=== PATIENT | female | born 1950 | race Caucasian/White ===

== ENCOUNTER 2016-11-26 15:21 | Inpatient (IN) | payer MEDICARE, OTHER ==
[2016-11-26] MEDS ORDERED: CYMBALTA30 M1 PO (15:25)
[2016-11-26] MEDS ORDERED: OMEGA 3 1,0001 EAC1 PO (15:38)
[2016-11-26] MEDS ORDERED: CHOLESTOFF PO (15:39)
[2016-11-26] MEDS ORDERED: VITAMIN C500 M3 PO (15:39)
[2016-11-26 16:20] LABS: URINE BILIRUBIN NEGATIVE (NEG); URINE BLOOD SMALL (NEG); URINE GLUCOSE (UA) MODERATE (NEG); URINE KETONE NEGATIVE (NEG); URINE LEUKOCYTE ESTERASE POSITIVE (NEG); URINE NITRITE NEGATIVE (NEG); URINE PROTEIN NEGATIVE (NEG)
[2016-11-26 16:24] LABS: URINE APPEARANCE CLEAR; URINE COLOR YELLOW
[2016-11-26 16:27] LABS: URINE RBC 0-1 /[HPF] (0-5)
[2016-11-26 16:41] LABS: BASO % 0.2 % (0-2); EOS % 0.2 % (0-7); HCT-HEMATOCRIT 36.6 % (34.0-49.0); HGB-HEMOGLOBIN 13.1 gm/dl (12.0-15.5); IMMATURE GRANULOCYTES ABSOLUTE 0.01 tho/cmm (0-0.03); IMMATURE GRANULOCYTES PERCENT 0.2 % (0-0.3); LYMPH % 11.8 % (20-45); LYMPH ABSOLUTE COUNT 0.7 tho/cmm (0.8-4.5); MCH (MEAN CORPUSCULAR HGB) 33.1 pg (28.0-32.0); MCHC MEAN CORPUSCULAR HGB CONC 35.8 % (32.0-36.0); MCV (MEAN CELL VOLUME) 92.4 fl (82.0-96.0); MEAN PLATELET VOLUME 9.9 cmc (9.4-12.4); MONO % 7.1 % (0-12); MONOCYTE ABSOLUTE COUNT 0.4 tho/cmm (0.0-1.2); NEUTROPHIL ABSOLUTE COUNT 4.4 tho/cmm (1.6-8.0); NEUTROPHIL-AUTOMATED 4.4 tho/cmm (1.6-8.0); NEUTROPHILS % 80.5 % (40-80); PLATELET COUNT 154 tho/cmm (150-450); RED BLOOD COUNT 3.96 mil/cmm (4.00-5.20); RED CELL DISTRIBUTION WIDTH 12.1 % (12.4-16.4); WHITE BLOOD COUNT 5.5 tho/cmm (4.0-10.0)
[2016-11-26 17:01] LABS: ALB/GLOB RATIO 1.3 (0.8-2.0); ALBUMIN 3.8 g/dl (3.5-5.0); ALKALINE PHOSPHATASE 70 U/L (33-138); ALT/SGPT 31 U/L (12-78); ANION GAP 14 mmol/L (0-20); AST/SGOT 13 U/L (10-40); BILIRUBIN,TOTAL 0.7 mg/dl (0-1.5); BLOOD UREA NITROGEN 13 mg/dl (6-24); CALCIUM 8.5 mg/dl (8.5-10.5); CARBON DIOXIDE-VENOUS 25 mmol/L (22-32); CHLORIDE 101 mmol/l (96-110); CREATININE 0.59 mg/dl (0.50-1.10); GLUCOSE 139 mg/dL (70-110); POTASSIUM 3.7 mmol/L (3.7-5.1); SODIUM 136 mmol/L (135-145); eGFR VALUE FOR BLACK >90 mL/Min
[2016-11-26 17:05] LABS: TSH-THYROID STIMULATING HORM. 0.54 uIU/ml (0.40-3.80)
[2016-11-29 18:20] LABS: BASO % 0.1 % (0-2); HCT-HEMATOCRIT 33.8 % (34.0-49.0); HGB-HEMOGLOBIN 12.3 gm/dl (12.0-15.5); IMMATURE GRANULOCYTES ABSOLUTE 0.02 tho/cmm (0-0.03); IMMATURE GRANULOCYTES PERCENT 0.2 % (0-0.3); LYMPH % 4.3 % (20-45); LYMPH ABSOLUTE COUNT 0.4 tho/cmm (0.8-4.5); MCH (MEAN CORPUSCULAR HGB) 33.4 pg (28.0-32.0); MCHC MEAN CORPUSCULAR HGB CONC 36.4 % (32.0-36.0); MCV (MEAN CELL VOLUME) 91.8 fl (82.0-96.0); MEAN PLATELET VOLUME 9.5 cmc (9.4-12.4); MONO % 6.5 % (0-12); MONOCYTE ABSOLUTE COUNT 0.6 tho/cmm (0.0-1.2); NEUTROPHIL ABSOLUTE COUNT 7.7 tho/cmm (1.6-8.0); NEUTROPHIL-AUTOMATED 7.7 tho/cmm (1.6-8.0); NEUTROPHILS % 88.9 % (40-80); PLATELET COUNT 151 tho/cmm (150-450); RED BLOOD COUNT 3.68 mil/cmm (4.00-5.20); RED CELL DISTRIBUTION WIDTH 12.3 % (12.4-16.4); WHITE BLOOD COUNT 8.6 tho/cmm (4.0-10.0)
[2016-11-29 18:39] LABS: ANION GAP 14 mmol/L (0-20); BLOOD UREA NITROGEN 6 mg/dl (6-24); CALCIUM 8.3 mg/dl (8.5-10.5); CARBON DIOXIDE-VENOUS 25 mmol/L (22-32); CHLORIDE 103 mmol/l (96-110); CREATININE 0.61 mg/dl (0.50-1.10); GLUCOSE 176 mg/dL (70-110); POTASSIUM 3.4 mmol/L (3.7-5.1); SODIUM 139 mmol/L (135-145); eGFR VALUE FOR BLACK >90 mL/Min
[2016-12-02] MEDS ORDERED: DUONEB INH (14:52)
[2016-12-02] MEDS ORDERED: NORCO 5-325 TA1 EACH PO (14:53)
[2016-12-02] MEDS ORDERED: TYLENOL325 M2 PO (14:54)
[2016-12-02] MEDS ORDERED: DEXAMETHASONE4 M1 PO (14:57)
[2016-12-02] MEDS ORDERED: MILK OF MAGNESIA PO (14:58)
[2016-12-02] MEDS ORDERED: MIRALAX17 G2 PO (14:59)
== END 2016-12-02 16:30 | DRG 25 ==
LOC: EDMED 15:21 → EMR2 19:45 → 5WF 21:04 → PACU 11-29 12:24 → CCU 11-29 12:46 → 5EB 11-30 16:00
PROVIDERS: Emergency Medicine; Internal Medicine Critical Care Medicine; ADMIT Family Medicine
PROC: 5A09357 Assistance with Respiratory Ventilation, Less than 24 Consecutive Hours, Continuous Positive Airway Pressure (ICD-10-PCS; 2016-11-26)
PROC: 00BC0ZZ Excision of Cerebellum, Open Approach (ICD-10-PCS; principal; 2016-11-29)
DX: D32.0 Benign neoplasm of cerebral meninges (principal); G93.6 Cerebral edema; G91.1 Obstructive hydrocephalus; R27.0 Ataxia, unspecified; Z91.81 History of falling; M79.7 Fibromyalgia; M48.00 Spinal stenosis, site unspecified; E87.6 Hypokalemia; G47.30 Sleep apnea, unspecified
CPT/HCPCS: A9577; C1713; C1751; G8978-GP-CJ; G8979-GP-CI; G8979-GP-CJ; G8980-GP-CJ; J0690; J1170; J2250; J2310; J2405; J7030

== ENCOUNTER 2016-12-30 09:18 | Inpatient (IN) | payer MEDICARE, OTHER ==
[~2016-12-30 09:18] MED LIST: CHOLESTOFF PO; CYMBALTA30 M1 PO; DEXAMETHASONE4 M1 PO; DUONEB INH; MILK OF MAGNESIA PO; MIRALAX17 G2 PO; NORCO 5-325 TA1 EACH PO; OMEGA 3 1,0001 EAC1 PO; TYLENOL325 M2 PO; VITAMIN C500 M3 PO
[2016-12-30] MEDS ORDERED: TYLENOL EXTRA500 M1 PO (09:40)
[2016-12-30] MEDS ORDERED: CERTAVITE SR-A1 EACH PO (09:40)
[2016-12-30] MEDS ORDERED: CALCIUM 600 +1 EA12 PO (09:40)
[2016-12-30] MEDS ORDERED: CYMBALTA30 M1 PO (09:41)
[2016-12-30] MEDS ORDERED: FISH OIL 11000 MG/CA PO (09:41)
[2016-12-30] MEDS ORDERED: CHOLEST OFF450 M1 PO (09:41)
[2016-12-30] MEDS ORDERED: FLOMAX0.4 M1 PO (09:42)
[2016-12-30] MEDS ORDERED: GLUCOSAMINE CH1 EA13 PO (09:42)
[2016-12-30] MEDS ORDERED: VITAMIN C500 M3 PO (09:42)
[2016-12-30] MEDS ORDERED: MAGNESIUM CITR100 M1 PO (09:42)
[2016-12-30] MEDS ORDERED: FLONASE ALLERG9.9 ML (09:43)
[2016-12-30] MEDS ORDERED: VITAMIN D32000 UNI3 PO (09:43)
[2016-12-30] MEDS ORDERED: ZOFRAN4 M2 PO (09:44)
[2016-12-30] MEDS ORDERED: CLARITIN10 M6 PO (09:44)
[2016-12-30 10:27] LABS: BASO % 0.5 % (0-2); EOS % 0.5 % (0-7); HGB-HEMOGLOBIN 14.5 gm/dl (12.0-15.5); IMMATURE GRANULOCYTES ABSOLUTE 0.02 tho/cmm (0-0.03); IMMATURE GRANULOCYTES PERCENT 0.5 % (0-0.3); LYMPH % 17.6 % (20-45); LYMPH ABSOLUTE COUNT 0.7 tho/cmm (0.8-4.5); MCH (MEAN CORPUSCULAR HGB) 33.4 pg (28.0-32.0); MCHC MEAN CORPUSCULAR HGB CONC 36.3 % (32.0-36.0); MCV (MEAN CELL VOLUME) 92.2 fl (82.0-96.0); MEAN PLATELET VOLUME 9.4 cmc (9.4-12.4); MONO % 9.2 % (0-12); MONOCYTE ABSOLUTE COUNT 0.4 tho/cmm (0.0-1.2); NEUTROPHILS % 71.7 % (40-80); PLATELET COUNT 227 tho/cmm (150-450); RED BLOOD COUNT 4.34 mil/cmm (4.00-5.20); RED CELL DISTRIBUTION WIDTH 12.7 % (12.4-16.4); WHITE BLOOD COUNT 4.2 tho/cmm (4.0-10.0)
[2016-12-30 10:35] LABS: ALBUMIN 3.9 g/dl (3.5-5.0); ALKALINE PHOSPHATASE 106 U/L (33-138); ALT/SGPT 71 U/L (12-78); AST/SGOT 28 U/L (10-40); BILIRUBIN,TOTAL 1.1 mg/dl (0-1.5); BLOOD UREA NITROGEN 9 mg/dl (6-24); CALCIUM 9.3 mg/dl (8.5-10.5); CARBON DIOXIDE-VENOUS 24 mmol/L (22-32); CHLORIDE 104 mmol/l (96-110); CREATININE 0.77 mg/dl (0.50-1.10); GLUCOSE 145 mg/dL (70-110); LIPASE 433 U/L (73-393); SODIUM 140 mmol/L (135-145); eGFR VALUE FOR BLACK >90 mL/Min
[2016-12-30 10:44] LABS: ANION GAP 15 mmol/L (0-20); C-REACTIVE PROTEIN <0.3 mg/dl (0-0.9)
[2016-12-31 04:52] LABS: BASO % 0.4 % (0-2); EOS % 1.3 % (0-7); EOSINOPHIL ABSOLUTE COUNT 0.1 tho/cmm (0.0-0.7); HCT-HEMATOCRIT 36.4 % (34.0-49.0); HGB-HEMOGLOBIN 12.7 gm/dl (12.0-15.5); IMMATURE GRANULOCYTES ABSOLUTE 0.01 tho/cmm (0-0.03); IMMATURE GRANULOCYTES PERCENT 0.2 % (0-0.3); LYMPH % 28.6 % (20-45); LYMPH ABSOLUTE COUNT 1.3 tho/cmm (0.8-4.5); MCH (MEAN CORPUSCULAR HGB) 32.7 pg (28.0-32.0); MCHC MEAN CORPUSCULAR HGB CONC 34.9 % (32.0-36.0); MCV (MEAN CELL VOLUME) 93.8 fl (82.0-96.0); MEAN PLATELET VOLUME 9.2 cmc (9.4-12.4); MONO % 10.7 % (0-12); MONOCYTE ABSOLUTE COUNT 0.5 tho/cmm (0.0-1.2); NEUTROPHIL ABSOLUTE COUNT 2.7 tho/cmm (1.6-8.0); NEUTROPHIL-AUTOMATED 2.7 tho/cmm (1.6-8.0); NEUTROPHILS % 58.8 % (40-80); PLATELET COUNT 192 tho/cmm (150-450); RED BLOOD COUNT 3.88 mil/cmm (4.00-5.20); WHITE BLOOD COUNT 4.6 tho/cmm (4.0-10.0)
[2016-12-31 05:03] LABS: AMYLASE 60 U/L (20-90); BLOOD UREA NITROGEN 8 mg/dl (6-24); CALCIUM 8.5 mg/dl (8.5-10.5); CARBON DIOXIDE-VENOUS 25 mmol/L (22-32); CHLORIDE 109 mmol/l (96-110); CREATININE 0.52 mg/dl (0.50-1.10); GLUCOSE 103 mg/dL (70-110); MAGNESIUM 2.1 mg/dl (1.8-2.6); SODIUM 144 mmol/L (135-145); eGFR VALUE FOR BLACK >90 mL/Min
[2016-12-31 05:19] LABS: ANION GAP 13 mmol/L (0-20); LIPASE 172 U/L (73-393)
[2016-12-31 05:21] LABS: POTASSIUM 2.9 mmol/L (3.7-5.1)
[2017-01-01] MEDS ORDERED: TYLENOL325 M2 PO (11:58)
[2017-01-01] MEDS ORDERED: PROTONIX20 M2 PO (12:00)
== END 2017-01-01 12:50 | DRG 439 ==
LOC: EDMED 09:18 → EMR2 12:58 → 5WE 13:45
PROVIDERS: Emergency Medicine; ADMIT Internal Medicine
DX: K85.90 Acute pancreatitis without necrosis or infection, unspecified (principal); G91.1 Obstructive hydrocephalus; R42 Dizziness and giddiness; E87.6 Hypokalemia; R53.1 Weakness; M79.7 Fibromyalgia; M48.00 Spinal stenosis, site unspecified; Z88.5 Allergy status to narcotic agent; Z79.899 Other long term (current) drug therapy
CPT/HCPCS: C9113; J2405; J3480; J7030

== ENCOUNTER 2017-01-28 06:57 | Emergency (ER) | payer MEDICARE, OTHER ==
[~2017-01-28 06:57] MED LIST changes: +CALCIUM 600 +1 EA12 PO; +CERTAVITE SR-A1 EACH PO; +CHOLEST OFF450 M1 PO; +CLARITIN10 M6 PO; +FISH OIL 11000 MG/CA PO; +FLOMAX0.4 M1 PO; +FLONASE ALLERG9.9 ML; +GLUCOSAMINE CH1 EA13 PO; +MAGNESIUM CITR100 M1 PO; +PROTONIX20 M2 PO; +TYLENOL EXTRA500 M1 PO; +VITAMIN D32000 UNI3 PO; +ZOFRAN4 M2 PO
[2017-01-28 08:05] LABS: BASO % 1.4 % (0-2); BASO ABSOLUTE COUNT 0.1 tho/cmm (0.0-0.2); EOS % 2.2 % (0-7); EOSINOPHIL ABSOLUTE COUNT 0.1 tho/cmm (0.0-0.7); HCT-HEMATOCRIT 39.5 % (34.0-49.0); HGB-HEMOGLOBIN 14.2 gm/dl (12.0-15.5); IMMATURE GRANULOCYTES ABSOLUTE 0.01 tho/cmm (0-0.03); IMMATURE GRANULOCYTES PERCENT 0.3 % (0-0.3); LYMPH % 28.4 % (20-45); LYMPH ABSOLUTE COUNT 1.1 tho/cmm (0.8-4.5); MCH (MEAN CORPUSCULAR HGB) 33.1 pg (28.0-32.0); MCHC MEAN CORPUSCULAR HGB CONC 35.9 % (32.0-36.0); MCV (MEAN CELL VOLUME) 92.1 fl (82.0-96.0); MEAN PLATELET VOLUME 9.6 cmc (9.4-12.4); MONO % 6.8 % (0-12); MONOCYTE ABSOLUTE COUNT 0.3 tho/cmm (0.0-1.2); NEUTROPHIL ABSOLUTE COUNT 2.3 tho/cmm (1.6-8.0); NEUTROPHIL-AUTOMATED 2.3 tho/cmm (1.6-8.0); NEUTROPHILS % 60.9 % (40-80); PLATELET COUNT 194 tho/cmm (150-450); RED BLOOD COUNT 4.29 mil/cmm (4.00-5.20); RED CELL DISTRIBUTION WIDTH 12.8 % (12.4-16.4); WHITE BLOOD COUNT 3.7 tho/cmm (4.0-10.0)
[2017-01-28 08:24] LABS: ALB/GLOB RATIO 1.2 (0.8-2.0); ALBUMIN 4.2 g/dl (3.5-5.0); ALKALINE PHOSPHATASE 105 U/L (33-138); ALT/SGPT 43 U/L (12-78); ANION GAP 13 mmol/L (0-20); AST/SGOT 19 U/L (10-40); BILIRUBIN,TOTAL 1.1 mg/dl (0-1.5); BLOOD UREA NITROGEN 7 mg/dl (6-24); CALCIUM 9.7 mg/dl (8.5-10.5); CARBON DIOXIDE-VENOUS 27 mmol/L (22-32); CHLORIDE 105 mmol/l (96-110); CREATININE 0.85 mg/dl (0.50-1.10); GLUCOSE 129 mg/dL (70-110); LIPASE 322 U/L (73-393); POTASSIUM 4.2 mmol/L (3.7-5.1); SODIUM 141 mmol/L (135-145); eGFR VALUE FOR BLACK 82 mL/Min
== END 2017-01-28 10:01 ==
LOC: EDMED 06:57
PROVIDERS: Emergency Medicine
DX: R11.2 Nausea with vomiting, unspecified (principal); R42 Dizziness and giddiness; E78.5 Hyperlipidemia, unspecified; G47.33 Obstructive sleep apnea (adult) (pediatric); Z98.49 Cataract extraction status, unspecified eye; Z90.89 Acquired absence of other organs; Z98.890 Other specified postprocedural states
CPT/HCPCS: J2405; J7030